=== PATIENT | male | born 1945 | race Caucasian/White ===

== ENCOUNTER 2017-01-25 09:08 | Day surgery (SDC) | payer MEDICARE ==
[~2017-01-25] VITALS: Ht 167.6 cm; Wt 79.8 kg
[~2017-01-25 09:08] MED LIST: BENEDRYL; BUPIVACAINE MPF 0.5% 30 ML VIAL. ONE; CEFAZOLIN 1GM IVPB FOR OMNI 50 ML IV PRN; FENTANYL PF 100 MCG/2 ML VIAL. ONE; LIDOCAINE 1% 20 ML VIAL. ONE; LIPITOR; MELO-150 PO; OTHER
[2017-01-25] MEDS ORDERED: IV RINGERS,LACTATED 1000ML 1,000 ML IV SCH (09:28)
[2017-01-25] MEDS ORDERED: HYDROMORPHONE 2 MG/ML VIAL. IV PRN (09:30)
[2017-01-25] MEDS ORDERED: MORPHINE SULFATE 2 MG/ML DISP.SYRIN. IV PRN (09:30)
[2017-01-25] MEDS ORDERED: ONDANSETRON PF 4 MG/2 ML VIAL. IV PRN (09:30)
[2017-01-25] MEDS ORDERED: PROCHLORPERAZINE 10 MG/2 ML VIAL. IV PRN (09:30)
[2017-01-25] MEDS ORDERED: FENTANYL PF 100 MCG/2 ML VIAL. IV PRN ×2 (09:30)
[2017-01-25] MEDS ORDERED: LIDOCAINE 1% 1 ML SYRINGE. ID PRN (09:30)
[2017-01-25] MEDS ORDERED: ACET500T33 PO (09:41)
[2017-01-25] MEDS ORDERED: LOVA40TA2 PO (09:41)
[2017-01-25] MEDS ORDERED: RANI150C PO (09:41)
--- NOTE | 2017-01-25 09:59 | DISCH ---
DISCHARGE INSTRUCTIONS Condition on Discharge Condition on Discharge: Stable Activity After Discharge Activity Instructions for Disc: Other, see below Bathing Instructions: Shower-keep dressing dry Lifting Instructions after Dis: No heavy lifting, No pulling or pushing, Do not lift >10 pounds Diet after Discharge Diet after Discharge: Regular Wound Incision Care Wound/Incision Care: Ice to area for comfort, Keep wound/cast CDI, Keep wound elevated, Do not change dressing Contacting the DR. after DC Call your doctor for: Concerns you may have Follow-Up Follow up with: Tsering Saucedo in 2 wks GWEN DAVIS II, MD Jan 25, 2017 09:59
[2017-01-25] MEDS ORDERED: PROPOFOL 20 ML IV ONE (10:05)
[2017-01-25] MEDS ORDERED: ONDANSETRON PF 4 MG/2 ML VIAL. ONE (10:05)
[2017-01-25] MEDS ORDERED: DEXAMETHASONE SOD PHOS 20 MG/5 ML VIAL. ONE (10:05)
[2017-01-25] MEDS ORDERED: LIDOCAINE 2% 100 MG/5 ML DISP.SYRIN. ONE (10:05)
[2017-01-25] MEDS ORDERED: DESFLURANE 31 TO 60 MINUTES IH ONE (10:05)
[2017-01-25] MEDS ORDERED: HYDR-971 PO (11:07)
[2017-01-25] MEDS ORDERED: DOCU-27 PO (11:08)
[2017-01-25] MEDS ORDERED: ONDA4TAB10 SL (11:11)
[2017-01-25] MEDS ORDERED: HYDROCODONE/APAP 5/325MG TABLET. PO ONE (11:30)
[2017-01-25 11:50] VITALS: BP 162/67
--- NOTE | 2017-01-25 13:12 | OP ---
DATE OF SURGERY: 01/25/2017 SURGEON: Freddie Davis M.D. ASSISTANT SCIENTIST: None. PREOPERATIVE DIAGNOSIS: Right carpal tunnel syndrome. POSTOPERATIVE DIAGNOSIS: Right carpal tunnel syndrome. PROCEDURE PERFORMED: Open right carpal tunnel release. ANESTHESIA: General. TOURNIQUET TIME: 11 minutes. BLOOD LOSS: 5 mL. COMPLICATIONS: None. REASON FOR PROCEDURE: The patient is a very pleasant 71-year-old gentleman with bilateral, right greater than left, electrodiagnostically proven carpal tunnel syndrome who had failed conservative therapy such as anti-inflammatories and splinting and because of this, we had discussion of risks, benefits, alternatives of proceeding with the above surgery due to the impairment he was experiencing, trying to work with his hands. DESCRIPTION OF PROCEDURE: The patient was greeted in the preoperative area by myself where the correct extremity was marked and verified. He was taken to the operative suite and antibiotics were started en route. Once in the OR, he was transferred gently supine to the OR table and had successful induction of general anesthesia and then was secured to the bed with all pressure points padded. A nonsterile tourniquet was placed in his right upper extremity. We then proceeded to prep and drape the right upper extremity in usual sterile fashion and conducted a standard preoperative timeout. I then exsanguinated the extremity with an Esmarch and insufflated the tourniquet to 250 mmHg. I then made a volar wrist and incision in his mid palmar crease from his distal wrist crease distally. I dissected the subcutaneous tissue with tenotomy and cauterized bleeders with bipolar cautery. I identified the palmar fascia and incised this along the skin incision. After this, I placed myself retainer and identified the transverse carpal ligament, used a scalpel to transect this. I then used a Ragnell distally and the tenotomies spread above and below the fascia and then released this. I then repeated this maneuver proximally in an ulnar directed fashion to release the antebrachial fascia. After this, I irrigated out the operative field after I ensured I had accomplished a full release. I then closed the skin with simple interrupted 2-0 nylon. A Xeroform sterile dressing and a bulky soft dressing were then applied. The patient tolerated the surgery well. Tourniquet was let down. He was transferred gently supine on the OR table where seemed to the recovery room cart and taken to PACU in stable and extubated condition. Prior to completion of wound closure, all counts reported as correct x 2. No complications. Postop plan is for him to follow his lifting restriction. I did discuss wiggling his fingers frequently with him. He will see me in 2 weeks, sooner should problems arise. FREDDIE DAVIS MD DR: JAYLEN/lori JOB#: [id number] / [id number] ARSH
--- NOTE | 2017-01-26 00:19 | ACF ---
Admission Forms Criteria MUSCULOSKELETAL DISEASE GRG Clinical Indications for Admission to Inpatient Care (Place 'X' for any and all applicable criteria): Hospital admission is needed for appropriate care of the patient because of ANY ONE of the following: [ ]I. Fracture, dislocation, or other musculoskeletal injury requiring inpatient care(medical) as indicated by ANY ONE of the following(4)(5)(6)(7) [ ]a) Vertebral fracture requiring observation for instability or neurologic compromise (8) [ ]b) Compartment syndrome (proven or cannot be ruled out during observation level of care) (9) [ ]c) Limb-threatening injury [ ]d) Major injury requiring inpatient stabilization such as traction initiation or external fixation before internal fixation or closure of complex or open fracture [ ]e) Major injury requiring inpatient treatment after emergency or observation level care (as appropriate) [ ]f) Severe pain requiring acute inpatient management [ ]II. Newly diagnosed or suspected bone, joint, or orthopedic device infection (e.g., osteomyelitis, septic arthritis) needing ANY ONE of the following(1)(2)(3) [ ]a) IV antibiotics that cannot be initiated in other than inpatient setting (e.g., patient too unstable or home infusion not available) [ ]b) Device removal or replacement [ ]c) Bone or soft tissue debridement [ ]d) Joint drainage (drain placement or repetitive aspirations) [ ]III. Severe rheumatologic disease (e.g., systemic lupus erythematosus, rheumatoid arthritis) with complications or comorbidities (Also use Optimal Recovery Care Criteria or General Recovery Criteria as appropriate on the basis of predominant condition), including ANY ONE of the following(10 )(11)(12)(13) [ ]a) Severe infection (e.g., YOUTH ASSOCIATE infection, sepsis) (14) [ ]b) Respiratory complications, including ANY ONE of the following: [ ]i) Pleural effusion with respiratory compromise [ ]ii) Pulmonary hypertension with congestive failure [ ]iii) Respiratory failure [ ]iv) Pulmonary hemorrhage (15) [ ]c) Hematologic disease, including ANY ONE of the following: [ ]i) Coagulopathy with bleeding [ ]ii) Thrombosis with hypercoagulable state [ ]iii) Thrombotic thrombocytopenic purpura [ ]d) Cerebritis with seizures, psychosis, or other severe abnormalities [ ]e) Vertebral destruction with monitoring needed for cervical myelopathy& possible respiratory compromise [ ]f) Exacerbation that requires inpatient treatment (e.g., intravenous immunosuppression) (16) [ ]g) Acute renal failure [ ]IV. Severe vasculitis with complications or comorbidities (Also use Optimal Recovery Care Criteria or General Recovery Criteria as appropriate on the basis of predominant condition), including ANY ONE of the following(11)(12)(17)(18)(19)(20) [ ]a) YOUTH ASSOCIATE vasculitis with seizures, psychosis, or other severe abnormalities (22) [ ]b) Renal failure (16) [ ]c) Pulmonary hemorrhage (15) [ ]d) Cerebral infarction [ ]e) Gastrointestinal ischemia [ ]f) Gangrene or threatened amputation [ ]g) Exacerbation that requires inpatient treatment (e.g., intravenous immunosuppression) (19)(21) [ ]V. Severe myopathy as indicated by ANY ONE of the following (28)(29) [ ]a) New onset of airway compromise or inability to swallow [ ]b) Respiratory deterioration with observation needed for impending respiratory failure [ ]c) Exacerbation that requires inpatient treatment (e.g., intravenous immunosuppression) [ ]. Severe gout (crystal arthropathy) as indicated by ANY ONE of the following (23)(24) [ ]a) Severe pain requiring acute inpatient management [ ]b) Exacerbation that requires inpatient treatment (e.g., intravenous treatment) [ ]VII.Rhabdomyolysis and ANY ONE of the following (25)(26)(27) [ ]a) Acute renal failure [ ]b) Need for intravenous hydration after emergency or observation level care (as appropriate) [ ]c) Inability to maintain oral hydration [ ]d) Change in mental status [ ]e) Electrolyte abnormality that remains after emergency or observation level care (as appropriate) [ ]VIII Post amputation complication, as indicated by ANY ONE of the following [ ]a) Infection [ ]b) Dehiscence [ ]c) Myodesis failure [X]IX. Severe pain requiring acute inpatient management as indicated by ALL of the following (30)(31)(32) [X]a) Continuous or frequent (e.g., every 2 to 4 hrs) parenteral analgesics required [A] [X]b) Rapid improvement expected from treatment or acute intervention ( e.g., surgery, anesthesia procedure[B] [ ]X. Musculoskeletal Disease and ALL of the following: [ ]a) Symptom or finding for which emergency and observation care have failed or are not considered appropriate (Use General Criteria: Observation Care as appropriate) [ ]b) Presence of ANY ONE of the following [ ]i) A General Admission Criteria [ ]ii) A Pediatric General Admission Criteria The original [facility] content created by [facility] has been revised. The portions of the content which have been revised are identified through the use of italic text or in bold, and [facility] has neither reviewed nor approved the modified material. All other unmodified content is copyright [facility]. Please see references footnoted in the original [facility] edition 2016 Admission Criteria Met?: Yes ONDINA BARROW Jan 26, 2017 00:19 GWEN DAVIS II, MD Jan 26, 2017 10:11
== END 2017-01-25 12:03 | disposition home or self-care (01) ==
LOC: SURG 09:08
PROVIDERS: ATTEND Orthopaedic Surgery Sports Medicine
DX: G56.01 Carpal tunnel syndrome, right upper limb (principal); E78.00 Pure hypercholesterolemia, unspecified; I10 Essential (primary) hypertension; J43.9 Emphysema, unspecified; K21.9 Gastro-esophageal reflux disease without esophagitis; Z98.52 Vasectomy status; M19.90 Unspecified osteoarthritis, unspecified site; Z87.891 Personal history of nicotine dependence; F10.21 Alcohol dependence, in remission
CPT/HCPCS: 64721; A4215; J0690; J1100; J2405; J2704; J3010; J3490

== ENCOUNTER 2017-02-20 06:55 | Day surgery (SDC) | payer MEDICARE ==
[~2017-02-20] VITALS: Ht 165.1 cm; Wt 78.0 kg
[~2017-02-20 06:55] MED LIST changes: +ACET500T33 PO; -BUPIVACAINE MPF 0.5% 30 ML VIAL. ONE; -CEFAZOLIN 1GM IVPB FOR OMNI 50 ML IV PRN; +DOCU-27 PO; +FENTANYL PF 100 MCG/2 ML VIAL. IV PRN; -FENTANYL PF 100 MCG/2 ML VIAL. ONE; +HYDR-971 PO; +HYDROMORPHONE 2 MG/ML VIAL. IV PRN; +IV RINGERS,LACTATED 1000ML 1,000 ML IV SCH; +LIDOCAINE 1% 1 ML SYRINGE. ID PRN; -LIDOCAINE 1% 20 ML VIAL. ONE; +LOVA40TA2 PO; +MIDAZOLAM HCL/PF 2 MG/2 ML VIAL. IV PRN; +MORPHINE SULFATE 2 MG/ML DISP.SYRIN. IV PRN; +ONDA4TAB10 SL; +ONDANSETRON PF 4 MG/2 ML VIAL. IV PRN; +PROCHLORPERAZINE 10 MG/2 ML VIAL. IV PRN; +RANI150C PO
[2017-02-20] MEDS ORDERED: ONDANSETRON PF 4 MG/2 ML VIAL. IV PRN (07:00)
[2017-02-20] MEDS ORDERED: HYDROMORPHONE 2 MG/ML VIAL. IV PRN (07:00)
[2017-02-20] MEDS ORDERED: IV RINGERS,LACTATED 1000ML 1,000 ML IV SCH (07:00)
[2017-02-20] MEDS ORDERED: PROCHLORPERAZINE 10 MG/2 ML VIAL. IV PRN (07:00)
[2017-02-20] MEDS ORDERED: LIDOCAINE 1% 1 ML SYRINGE. ID PRN (07:00)
[2017-02-20] MEDS ORDERED: FENTANYL PF 100 MCG/2 ML VIAL. IV PRN ×2 (07:00)
[2017-02-20] MEDS ORDERED: MORPHINE SULFATE 2 MG/ML DISP.SYRIN. IV PRN (07:00)
--- NOTE | 2017-02-20 07:24 | DISCH ---
DISCHARGE INSTRUCTIONS Condition on Discharge Condition on Discharge: Stable Activity After Discharge Activity Instructions for Disc: No restrictions Bathing Instructions: Shower-keep dressing dry Weight Bearing Status after Di: As tolerated Diet after Discharge Diet after Discharge: Regular Wound Incision Care Wound/Incision Care: Ice to area for comfort, Keep wound/cast CDI, Keep wound elevated, Do not change dressing Contacting the DRDeon after DC Call your doctor for: Concerns you may have Follow-Up Follow up with: Josesito/Lewis in 2 wks GWEN DAVIS II, MD Feb 20, 2017 07:24
--- NOTE | 2017-02-20 07:25 | PDOC ---
BRIEF OPERATIVE NOTE Date: Feb 20, 2017 Pre-Op Diagnosis L CTS Post-Op Diagnosis L CTS, median neuroma Procedure Performed L open CTR Surgeon Josesito Anesthesia Type: Regional, Conscious Sedation Blood Loss 5mL Complications none GWEN DAVIS II, MD Feb 20, 2017 07:25
[2017-02-20] MEDS ORDERED: CEFAZOLIN 1GM IVPB FOR OMNI 50 ML IV ONE ×2 (07:46→08:00)
[2017-02-20] MEDS ORDERED: LIDOCAINE 1% 20 ML VIAL. ONE (08:17)
[2017-02-20] MEDS ORDERED: BUPIVACAINE MPF 0.5% 30 ML VIAL. ONE (08:17)
[2017-02-20] MEDS ORDERED: PROPOFOL 20 ML IV ONE (08:19)
[2017-02-20] MEDS ORDERED: MIDAZOLAM HCL/PF 2 MG/2 ML VIAL. ONE (08:19)
[2017-02-20] MEDS ORDERED: LIDOCAINE 2% 100 MG/5 ML SYRINGE. ONE ×3 (08:20→08:34)
[2017-02-20] MEDS ORDERED: 0.9 % SODIUM CHLORIDE 50 ML VIAL. IJ ONE (08:20)
[2017-02-20] MEDS ORDERED: HYDROCODONE/APAP 5/325MG TABLET. PO PRN (09:45)
[2017-02-20 10:01] VITALS: BP 139/79
--- NOTE | 2017-02-20 13:06 | OP ---
DATE OF SURGERY: 02/20/2017 SURGEON: Freddie Davis MD REEL CUTTER: None. PREOPERATIVE DIAGNOSIS: Left carpal tunnel syndrome. POSTOPERATIVE DIAGNOSIS: 1. Left carpal tunnel syndrome. 2. Left median nerve neuroma. TOURNIQUET TIME: 32 minutes. ESTIMATED BLOOD LOSS: 5 mL. SPECIMENS: Part of the neuroma was sent to Pathology. FINDINGS: The patient had a fibrofatty appearance in close proximity and interwoven in his median nerve proximal to his carpal tunnel. REASON FOR PROCEDURE: The patient is a very pleasant 71-year-old gentleman who underwent right carpal tunnel release with myself a couple of weeks ago. He had bilateral median nerve symptoms and electromyographically-proven bilateral carpal tunnel. After he recovered well enough from his right side, he wished to proceed with his left side. We had discussion of risks, benefits, and alternatives. He did have a history of prior trauma to his left wrist requiring laceration repair decades ago and had painful bump over his left wrist. DESCRIPTION OF PROCEDURE: The patient was greeted in the preoperative area by myself. Correct extremity was marked and verified. He was taken to the operative suite and antibiotics were started en route. Once in the OR, he had successful placement of a [place] block by the Anesthesiology team. We then proceeded to prep and drape the left upper extremity in our usual sterile fashion and conducted our standard preoperative timeout. After this, I made the standard volar incision over his tunnel and carried this proximally and then made an oblique incision in an ulnar directed fashion through his prior scar. I dissected subcutaneous tissue with tenotomies and cauterized bleeders with bipolar. I then proceeded to use the tenotomies to spread part his palmar fascia, and then I placed my self-retaining retractor and then incised his palmar fascia with the scalpel. I identified his transverse carpal ligament and transected this. I then placed a Ragnell to distal portion of the incision to spread above and below his palmar fascia there and then transected this. I then began working proximally and encountered the fibrofatty-appearing tissue and dissected around and identified and developed a plane around this nodular mass. As I was dissecting, I realized it was in continuity and interwoven in the median nerve itself. I did not think I would be able to safely resect it without risking damage to his nerve. Therefore, I took a pedicled portion of this and transected it at the pedicle and sent off the distal portion of the part I had transected for Pathology. The wound was then irrigated with sterile normal saline, and skin was closed with 3-0 nylon in mattress fashion. Steri-Strips, Xeroform, sterile gauze, sterile cast padding, and a volar slab splint were then applied. Prior to completion of wound closure, all counts were reported correct x 2. Postoperative plan is for the patient to follow up with me in 2 weeks, sooner should problems arise. At the conclusion of surgery, he was awakened and transferred gently supine to the Recovery Room cart and taken to PACU in stable and extubated condition. FREDDIE DAVIS MD DR: JAYLEN/lori JOB#: [id number] / [id number] ARSH
--- NOTE | 2017-02-21 17:14 | PATHOLOGY ---
PATHOLOGY REPORT * * * * * * * * FINAL DIAGNOSIS: Fibrous tissue, left carpal tunnel: - Neuroma. ([facility]; d/t: 02/21/17) REPORT ELECTRONICALLY SIGNED BY: Cruz Virk M.D. DATE/TIME: 02/21/2017 16:24 * * * * * * * * GROSS PATHOLOGY: Received in formalin labeled "Fabiano Camacho, neuroma," is a glistening, pearly-white, nodular segment of soft tissue measuring 0.8 x 0.7 x 0.5 cm. The specimen is submitted entirely in cassette A1. ([facility]; 02/20/17) INITIAL CPT CODE(S): A; 30573 Professional services performed by [facility] [address] Technical services performed by [facility] at [address] [place] [address] [address] [address]. SPECIMEN(S) RECEIVED: A.Neuroma CLINICAL HISTORY: Carpal tunnel, left PATIENT: FABIANO CAMACHO /AGE: 503/20/1945 (Age: 71) PATIENT #: [id number] ALT CASE #: SPECIMEN COLLECTION DATE: 02/20/2017 SPECIMEN RECEIVED DATE: 02/20/2017 [facility] - [address] [place] [address] - PHONE: [phone] * * * END OF REPORT * * *
== END 2017-02-20 10:30 | disposition home or self-care (01) ==
LOC: SURG 06:55
PROVIDERS: ATTEND Orthopaedic Surgery Sports Medicine
DX: G56.02 Carpal tunnel syndrome, left upper limb (principal); D36.12 Benign neoplasm of peripheral nerves and autonomic nervous system, upper limb, including shoulder; E78.00 Pure hypercholesterolemia, unspecified; I10 Essential (primary) hypertension; K21.9 Gastro-esophageal reflux disease without esophagitis; M19.90 Unspecified osteoarthritis, unspecified site; Z96.642 Presence of left artificial hip joint
CPT/HCPCS: 64721; J0690; J2250; J2704; J3490; A4215